=== PATIENT | male | born 1960 | race Caucasian/White ===

== ENCOUNTER 2017-06-27 15:30 | Emergency (ER) | payer MEDICAID ==
[~2017-06-27] VITALS: Ht 175.3 cm; Wt 73.0 kg
[2017-06-27] MEDS ORDERED: KETOROLAC 30MG/ML VIAL IM ONE (18:45)
[2017-06-27 19:00] VITALS: BP 165/99
== END 2017-06-27 21:07 | disposition home or self-care (01) ==
LOC: ER 15:30
DX: S90.31XA Contusion of right foot, initial encounter (principal); Y92.89 Other specified places as the place of occurrence of the external cause; Y93.89 Activity, other specified; W22.09XA Striking against other stationary object, initial encounter; F12.90 Cannabis use, unspecified, uncomplicated; F17.210 Nicotine dependence, cigarettes, uncomplicated
CPT/HCPCS: 73630; 96372; 99284; J1885; Z7610

== ENCOUNTER 2017-08-25 10:40 | Emergency (ER) | payer MEDICAID ==
[~2017-08-25] VITALS: Ht 172.7 cm; Wt 72.0 kg
[2017-08-25 11:01] VITALS: BP 144/97
[2017-08-25 11:37] LABS: CLARITY URINE CLEAR (CLEAR); COLOR URINE YELLOW (YELLOW); GLUCOSE URINE NEGATIVE (NEGATIVE); KETONES URINE NEGATIVE (NEGATIVE); LEUKOCYTE ESTERASE URINE NEGATIVE (NEGATIVE); NITRITE URINE NEGATIVE (NEGATIVE); OCCULT BLOOD URINE NEGATIVE (NEGATIVE); PROTEIN URINE NEGATIVE (NEGATIVE); SPECIFIC GRAVITY URINE 1.022 (1.005-1.030)
[2017-08-25] MEDS: LORAZEPAM 1MG TABLET PO ONE (11:44)
[2017-08-25 11:55] LABS: *AMPHETAMINES SCREEN URINE PRESUMTIVE POSITIVE (NEGATIVE); *BARBITURATES SCREEN URINE NEGATIVE (NEGATIVE); *BENZODIAZEPINES SCREEN URINE NEGATIVE (NEGATIVE); *COCAINE SCREEN URINE NEGATIVE (NEGATIVE); CANNABINOID URINE SCREEN PRESUMTIVE POSITIVE (NEGATIVE); METHADONE URINE SCREEN NEGATIVE (NEGATIVE); OPIATES URINE SCREEN NEGATIVE (NEGATIVE); PHENCYCLIDINE URINE SCREEN NEGATIVE (NEGATIVE)
== END 2017-08-25 12:17 | disposition home or self-care (01) ==
LOC: ER 10:53
DX: F15.10 Other stimulant abuse, uncomplicated (principal); F41.9 Anxiety disorder, unspecified; F20.9 Schizophrenia, unspecified; F32.9 Major depressive disorder, single episode, unspecified; F12.10 Cannabis abuse, uncomplicated; F17.200 Nicotine dependence, unspecified, uncomplicated
CPT/HCPCS: 80305; 81003; 99284

== ENCOUNTER 2017-08-26 13:42 | Emergency (ER) | payer MEDICAID ==
[~2017-08-26] VITALS: Ht 175.3 cm; Wt 73.0 kg
[2017-08-26 15:54] VITALS: BP 142/89
[2017-08-26] MEDS ORDERED: LORAZEPAM 0.5MG TABLET PO ONE (17:30)
== END 2017-08-26 18:07 | disposition left against medical advice (07) ==
LOC: ER 14:24
DX: F41.9 Anxiety disorder, unspecified (principal); F20.9 Schizophrenia, unspecified; F32.9 Major depressive disorder, single episode, unspecified; M19.90 Unspecified osteoarthritis, unspecified site; F17.200 Nicotine dependence, unspecified, uncomplicated; F12.10 Cannabis abuse, uncomplicated; F15.10 Other stimulant abuse, uncomplicated
CPT/HCPCS: 99284

== ENCOUNTER 2022-03-26 09:52 | Emergency (ER) | payer MEDICAID ==
[~2022-03-26] VITALS: Ht 172.7 cm; Wt 73.0 kg
[2022-03-26] MEDS ORDERED: KETOROLAC 60MG/2ML VIAL IM STA (10:42)
[2022-03-26] MEDS ORDERED: LORAZEPAM 0.5MG TABLET PO ONE (10:45)
[2022-03-26] MEDS ORDERED: METH-653 MT (12:31)
[2022-03-26] MEDS ORDERED: IBUP-2029 MT (12:31)
[2022-03-26 13:20] VITALS: BP 145/96
[2022-03-26] MEDS ORDERED: KETOROLAC 60MG/2ML VIAL IM NR (14:05)
== END 2022-03-26 15:41 | disposition home or self-care (01) ==
LOC: ER 09:52
DX: R07.89 Other chest pain (principal); M54.89 Other dorsalgia; J44.9 Chronic obstructive pulmonary disease, unspecified; F41.9 Anxiety disorder, unspecified; M19.90 Unspecified osteoarthritis, unspecified site; F32.A Depression, unspecified; F20.9 Schizophrenia, unspecified; F17.210 Nicotine dependence, cigarettes, uncomplicated; F15.10 Other stimulant abuse, uncomplicated; F12.10 Cannabis abuse, uncomplicated; Z87.828 Personal history of other (healed) physical injury and trauma
CPT/HCPCS: 71045; 93005; 96372; 99283; J1885

== ENCOUNTER 2022-06-02 12:12 | Emergency (ER) | payer MEDICAID, OTHER ==
[~2022-06-02] VITALS: Ht 167.6 cm; Wt 75.0 kg
[~2022-06-02 12:12] MED LIST: IBUP-2029 MT; METH-653 MT
[2022-06-02 12:28] VITALS: BP 162/97
[2022-06-02] MEDS ORDERED: CLIN-194 MT (14:27)
[2022-06-02] MEDS ORDERED: MUPI22OI2 TP (14:27)
== END 2022-06-02 14:55 | disposition home or self-care (01) ==
LOC: ER 12:12
DX: L02.31 Cutaneous abscess of buttock (principal); F15.10 Other stimulant abuse, uncomplicated; F12.10 Cannabis abuse, uncomplicated; Z86.59 Personal history of other mental and behavioral disorders
CPT/HCPCS: 99283

== ENCOUNTER 2023-03-02 18:19 | Emergency (ER) | payer MEDICARE, OTHER ==
[~2023-03-02] VITALS: Ht 175.3 cm; Wt 59.0 kg
[~2023-03-02 18:19] MED LIST changes: +CLIN-194 MT; +MUPI22OI2 TP
[2023-03-02 19:02] LABS: BASOPHILS % 0.3 % (0.0-2.0); EOSINOPHILS % 2.1 % (0.0-5.0); HEMATOCRIT. 33.7 % (42.0-52.0); LYMPHOCYTES % 15.8 % (20.0-50.0); MEAN CORPUSCULAR HEMOGLOBIN 28.8 pg (28.0-32.0); MEAN CORPUSCULAR VOLUME 87.9 fL (80.0-94.0); MEAN PLATELET VOLUME 6.8 fl (7.4-10.4); MONOCYTES % 8.7 % (2.0-8.0); NEUTROPHILS % 73.1 % (40.0-76.0); PLATELET 364 x1000/uL (130-400); RED BLOOD CELL COUNT 3.84 mill/uL (4.7-6.1); RED CELL DISTRIBUTION WIDTH 16.1 % (11.6-14.6)
[2023-03-02 19:12] LABS: CHLORIDE 96 mEq/L (98-107)
[2023-03-02 19:27] LABS: ETHANOL BLOOD < 10 mg/dL
[2023-03-02 20:47] LABS: *AMPHETAMINES SCREEN URINE PRESUMTIVE POSITIVE (NEGATIVE); *BARBITURATES SCREEN URINE NEGATIVE (NEGATIVE); *BENZODIAZEPINES SCREEN URINE PRESUMTIVE POSITIVE (NEGATIVE); *COCAINE SCREEN URINE NEGATIVE (NEGATIVE); CANNABINOID URINE SCREEN PRESUMTIVE POSITIVE (NEGATIVE); METHADONE URINE SCREEN PRESUMTIVE POSITIVE (NEGATIVE); OPIATES URINE SCREEN PRESUMTIVE POSITIVE (NEGATIVE); PHENCYCLIDINE URINE SCREEN NEGATIVE (NEGATIVE)
[2023-03-02 21:12] VITALS: BP 144/91
== END 2023-03-02 21:15 | disposition home or self-care (01) ==
LOC: ER 18:19
DX: R07.89 Other chest pain (principal); F41.9 Anxiety disorder, unspecified; M19.90 Unspecified osteoarthritis, unspecified site; F32.A Depression, unspecified; F20.9 Schizophrenia, unspecified; Z79.899 Other long term (current) drug therapy
CPT/HCPCS: 36415; 71045; 80053; 80305; 80320; 83880; 84484; 85025; 93005; 99285; G0480

== ENCOUNTER 2023-04-01 11:22 | Inpatient (IN) | payer MEDICARE, MEDICAID ==
[~2023-04-01] VITALS: Ht 175.3 cm; Wt 54.9 kg
[2023-04-01] MEDS ORDERED: IOHEXOL-350 100 ML BOTTLE ONE (12:11)
[2023-04-01 12:33] LABS: BASOPHILS % 0.2 % (0.0-2.0); EOSINOPHILS % 0.2 % (0.0-5.0); HEMATOCRIT. 28.5 % (42.0-52.0); HEMOGLOBIN. 9.4 g/dL (14.0-18.0); LYMPHOCYTES % 9.7 % (20.0-50.0); MEAN CORPUSCULAR HEMOGLOBIN 28.8 pg (28.0-32.0); MEAN CORPUSCULAR VOLUME 87.1 fL (80.0-94.0); MEAN PLATELET VOLUME 7.4 fl (7.4-10.4); MONOCYTES % 7.6 % (2.0-8.0); NEUTROPHILS % 82.3 % (40.0-76.0); PLATELET 298 x1000/uL (130-400); RED BLOOD CELL COUNT 3.28 mill/uL (4.7-6.1); RED CELL DISTRIBUTION WIDTH 17.5 % (11.6-14.6)
[2023-04-01 12:40] LABS: CHLORIDE 97 mEq/L (98-107)
[2023-04-01 12:48] LABS: BG BASE EXCESS 3.7 mmol/L (-2.0-2.0); BG CARBOXYHEMOGLOBIN 0.9 % (0.5-1.5); BG DEOXYHEMOGLOBIN 8.1 % (0.0-5.0); BG HCO3 ACT 27.7 mmol/L (22.0-26.0); BG METHEMOGLOBIN 0.2 % (0.0-1.5); BG OXYGEN SATURATION 91.8 % (92.0-98.5); BG OXYHEMOGLOBIN 90.8 % (94.0-97.0); BG PCO2 39.6 mmHg (35.0-45.0); BG PH 7.463 (7.350-7.450); BG PO2 59.7 mmHg (75.0-100.0); BG SAMPLE SITE RIGHT RADIAL; BG TOTAL HEMOGLOBIN 10.3 g/dL (12.0-18.0); BG VENT MODE ROOM AIR
[2023-04-01 12:51] LABS: ETHANOL BLOOD < 10 mg/dL (-10)
[2023-04-01 13:16] LABS: INR 1.3; PROTHROMBIN TIME 13.8 sec (9.6-11.0)
[2023-04-01 14:45] VITALS: BP 135/87; PULSE 105; RESP 19; TEMP 97.3
[2023-04-01] MEDS ORDERED: METH-818 PO (15:08)
[2023-04-01] MEDS ORDERED: APIX5TAB MT (15:09)
[2023-04-01 16:00] VITALS: BP 118/69; PULSE 99; RESP 18; TEMP 98.6
[2023-04-01] MEDS ORDERED: ACETAMINOPHEN 325MG TABLET PO PRN (16:30)
[2023-04-01] MEDS ORDERED: ONDANSETRON HCL 4MG/2ML INJ IV PRN (16:30)
[2023-04-01] MEDS ORDERED: MORPHINE SULFATE 2 MG/ML CPJ (NOT FOR IM USE) IV PRN (16:30)
[2023-04-01] MEDS: DEXT 5%/0.45% NACL 1000ML 1,000 ML IV SCH (16:45)
[2023-04-01] MEDS ORDERED: MULT-625 MT (17:07)
[2023-04-01] MEDS ORDERED: PARO-41 MT (17:11)
[2023-04-01] MEDS ORDERED: ONDA4TAB50 MT (17:11)
[2023-04-01] MEDS ORDERED: HYDR2TAB7 MT (17:11)
[2023-04-01] MEDS ORDERED: SENN1TAB35 MT (17:11)
[2023-04-01] MEDS ORDERED: GABA-290 MT (17:11)
[2023-04-01] MEDS ORDERED: RISP2TAB85 MT (17:11)
[2023-04-01] MEDS: LORAZEPAM 2MG/ML CPJ IV PRN (18:49)
[2023-04-01 18:51] LABS: HEPATITIS B SURFACE ANTIGEN NEGATIVE
[2023-04-01 19:28] LABS: *AMPHETAMINES SCREEN URINE PRESUMTIVE POSITIVE (NEGATIVE); *BARBITURATES SCREEN URINE NEGATIVE (NEGATIVE); *BENZODIAZEPINES SCREEN URINE NEGATIVE (NEGATIVE); *COCAINE SCREEN URINE NEGATIVE (NEGATIVE); CANNABINOID URINE SCREEN PRESUMTIVE POSITIVE (NEGATIVE); METHADONE URINE SCREEN PRESUMTIVE POSITIVE (NEGATIVE); OPIATES URINE SCREEN PRESUMTIVE POSITIVE (NEGATIVE); PHENCYCLIDINE URINE SCREEN NEGATIVE (NEGATIVE)
[2023-04-01] MEDS ORDERED: LORAZEPAM 2MG/ML CPJ IV NR (19:30)
[2023-04-01] MEDS: ASPIRIN 81MG TABLET PO SCH (19:30)
[2023-04-01 19:49] LABS: CLARITY URINE CLEAR (CLEAR); COLOR URINE YELLOW (YELLOW); PROTEIN URINE 1+ (NEGATIVE)
[2023-04-01 19:51] LABS: KETONES URINE 2+ (NEGATIVE); LEUKOCYTE ESTERASE URINE NEGATIVE (NEGATIVE); NITRITE URINE NEGATIVE (NEGATIVE); OCCULT BLOOD URINE NEGATIVE (NEGATIVE)
[2023-04-01 19:55] LABS: SPECIFIC GRAVITY URINE 1.072 (1.005-1.030)
[2023-04-01 20:00] VITALS: BP 139/70; PULSE 95; RESP 20; TEMP 98.1
[2023-04-01] MEDS ORDERED: NALOXONE HCL 0.4 MG/ML 1ML VIAL IV PRN (20:00)
[2023-04-01] MEDS ORDERED: HYDROMORPHONE HCL/PF 2MG/ML CPJ IV NR (20:00)
[2023-04-01] MEDS ORDERED: ATORVASTATIN CALCIUM 40MG TABLET PO SCH (21:00)
[2023-04-01] MEDS: ATORVASTATIN CALCIUM 40MG TABLET PO SCH (21:45)
[2023-04-02] VITALS (7 sets, daily range): BP systolic 102–130; BP diastolic 56–85; PULSE 90–114; RESP 18–20; TEMP 97.9–99.1
[2023-04-02] MEDS: LORAZEPAM 2MG/ML CPJ IV PRN ×2 (01:03→07:11)
[2023-04-02] MEDS: DEXT 5%/0.45% NACL 1000ML 1,000 ML IV SCH ×2 (08:44→19:10)
[2023-04-02] MEDS: ASPIRIN 81MG TABLET PO SCH (09:00)
[2023-04-02] MEDS: METHADONE HCL 10MG TABLET PO SCH (09:00)
[2023-04-02] MEDS ORDERED: LORAZEPAM 2MG/ML CPJ IV PRN (10:30)
[2023-04-02] MEDS ORDERED: GADOTERATE MEGLUMINE 5 MMOL/10 ML VIAL IV ONE (10:51)
[2023-04-02] MEDS: HALOPERIDOL LACTATE 5MG/ML VIAL IM PRN (15:38)
[2023-04-02] MEDS ORDERED: DIPHENHYDRAMINE 50MG/ML VIAL IV ONE ×2 (16:30→16:45)
[2023-04-02] MEDS ORDERED: IPRATROPIUM/ALBUTEROL 0.5-3(2.5)MG/3ML NEB HHN PRN (16:45)
[2023-04-02] MEDS: DIPHENHYDRAMINE 50MG/ML VIAL IV PRN (17:23)
[2023-04-02] MEDS: ATORVASTATIN CALCIUM 40MG TABLET PO SCH (21:24)
[2023-04-02] MEDS: ENOXAPARIN 60MG/0.6ML SYR SUBCUT SCH (21:25)
[2023-04-02 22:02] LABS: BASOPHILS % 0.2 % (0.0-2.0); EOSINOPHILS % 0.1 % (0.0-5.0); HEMATOCRIT. 29.8 % (42.0-52.0); HEMOGLOBIN. 9.9 g/dL (14.0-18.0); LYMPHOCYTES % 12.3 % (20.0-50.0); MEAN CORPUSCULAR HEMOGLOBIN 28.7 pg (28.0-32.0); MEAN CORPUSCULAR VOLUME 86.3 fL (80.0-94.0); MEAN PLATELET VOLUME 7.6 fl (7.4-10.4); MONOCYTES % 7.8 % (2.0-8.0); NEUTROPHILS % 79.6 % (40.0-76.0); PLATELET 303 x1000/uL (130-400); RED BLOOD CELL COUNT 3.45 mill/uL (4.7-6.1); RED CELL DISTRIBUTION WIDTH 17.9 % (11.6-14.6)
[2023-04-02 22:23] LABS: CHLORIDE 102 mEq/L (98-107)
[2023-04-03] VITALS: BP 117/87; PULSE 115; RESP 18; TEMP 98.4
[2023-04-03] MEDS: LORAZEPAM 2MG/ML CPJ IV PRN ×4 (00:30→23:00)
[2023-04-03 04:00] VITALS: BP 125/81; PULSE 117; RESP 18; TEMP 98.2
[2023-04-03 08:00] VITALS: BP 120/86; PULSE 117; RESP 18; TEMP 97.8
[2023-04-03] MEDS: ENOXAPARIN 60MG/0.6ML SYR SUBCUT SCH ×3 (08:00→21:07)
[2023-04-03 08:22] LABS: BASOPHILS % 0.3 % (0.0-2.0); EOSINOPHILS % 0.2 % (0.0-5.0); HEMATOCRIT. 31.7 % (42.0-52.0); HEMOGLOBIN. 10.5 g/dL (14.0-18.0); LYMPHOCYTES % 13.4 % (20.0-50.0); MEAN CORPUSCULAR HEMOGLOBIN 28.7 pg (28.0-32.0); MEAN CORPUSCULAR VOLUME 86.8 fL (80.0-94.0); MEAN PLATELET VOLUME 8.3 fl (7.4-10.4); MONOCYTES % 9.9 % (2.0-8.0); NEUTROPHILS % 76.2 % (40.0-76.0); PLATELET 283 x1000/uL (130-400); RED BLOOD CELL COUNT 3.66 mill/uL (4.7-6.1); RED CELL DISTRIBUTION WIDTH 17.8 % (11.6-14.6)
[2023-04-03] MEDS: METHADONE HCL 10MG TABLET PO SCH (08:45)
[2023-04-03] MEDS: DEXT 5%/0.45% NACL 1000ML 1,000 ML IV SCH ×2 (08:48→21:08)
[2023-04-03 09:04] LABS: CHLORIDE 102 mEq/L (98-107)
[2023-04-03 11:55] VITALS: BP 131/72; PULSE 16; RESP 18; TEMP 96.7
[2023-04-03] MEDS: HALOPERIDOL LACTATE 5MG/ML VIAL IM PRN ×2 (13:24→22:07)
[2023-04-03 16:22] VITALS: BP 120/86; PULSE 107; RESP 18; TEMP 97.8
[2023-04-03 20:00] VITALS: BP 114/84; PULSE 100; RESP 20; TEMP 97.8
[2023-04-03] MEDS: ATORVASTATIN CALCIUM 40MG TABLET PO SCH (21:07)
[2023-04-04] VITALS: BP 119/76; PULSE 98; RESP 19; TEMP 98.2
[2023-04-04 04:00] VITALS: PULSE 100; RESP 19; TEMP 97.5
[2023-04-04] MEDS: LORAZEPAM 2MG/ML CPJ IV PRN (05:12)
[2023-04-04 08:00] VITALS: BP 148/55; PULSE 101; RESP 18; TEMP 97.6
[2023-04-04] MEDS: METHADONE HCL 10MG TABLET PO SCH (08:25)
[2023-04-04] MEDS: HALOPERIDOL LACTATE 5MG/ML VIAL IM PRN (08:38)
[2023-04-04] MEDS: ENOXAPARIN 60MG/0.6ML SYR SUBCUT SCH (08:55)
[2023-04-04] MEDS: DEXT 5%/0.45% NACL 1000ML 1,000 ML IV SCH (11:13)
[2023-04-04 12:00] VITALS: BP 104/79; PULSE 98; RESP 18; TEMP 96.8
[2023-04-04 16:00] VITALS: BP 100/70; PULSE 98; RESP 18; TEMP 97
[2023-04-04 20:00] VITALS: BP 116/81; PULSE 105; RESP 18; TEMP 100.2
[2023-04-04] MEDS: ATORVASTATIN CALCIUM 40MG TABLET PO SCH (21:00)
[2023-04-05] VITALS: BP 108/72; PULSE 98; RESP 18; TEMP 98.1
[2023-04-05] MEDS: ENOXAPARIN 60MG/0.6ML SYR SUBCUT SCH ×2 (02:10→08:16)
[2023-04-05] MEDS: DEXT 5%/0.45% NACL 1000ML 1,000 ML IV SCH ×2 (02:10→14:07)
[2023-04-05 04:00] VITALS: BP 117/80; PULSE 64; RESP 18; TEMP 98.8
[2023-04-05 08:07] VITALS: BP 112/74; PULSE 94; RESP 20; TEMP 98.3
[2023-04-05] MEDS: METHADONE HCL 10MG TABLET PO SCH ×2 (08:47→09:00)
[2023-04-05] MEDS: HALOPERIDOL LACTATE 5MG/ML VIAL IM PRN (09:01)
[2023-04-05 12:00] VITALS: BP 110/69; PULSE 70; RESP 18; TEMP 98.3
[2023-04-05] MEDS: LORAZEPAM 2MG/ML CPJ IV PRN (13:01)
[2023-04-05 16:00] VITALS: BP 118/73; PULSE 99; RESP 18; TEMP 98.2
[2023-04-05 20:38] VITALS: BP 120/80; PULSE 102; RESP 20; TEMP 100.9
[2023-04-05] MEDS: ATORVASTATIN CALCIUM 40MG TABLET PO SCH (21:00)
[2023-04-06] VITALS: BP 131/78; PULSE 74; RESP 18; TEMP 97.9
[2023-04-06] MEDS: ENOXAPARIN 60MG/0.6ML SYR SUBCUT SCH ×3 (01:44→20:54)
[2023-04-06 04:00] VITALS: BP 124/71; PULSE 101; RESP 18; TEMP 98.2
[2023-04-06] MEDS: DEXT 5%/0.45% NACL 1000ML 1,000 ML IV SCH ×3 (04:02→22:38)
[2023-04-06 06:21] LABS: INR 1.8; PROTHROMBIN TIME 18.2 sec (9.6-11.0)
[2023-04-06 06:35] LABS: BASOPHILS % 0.5 % (0.0-2.0); HEMATOCRIT. 31.6 % (42.0-52.0); HEMOGLOBIN. 10.5 g/dL (14.0-18.0); LYMPHOCYTES % 15.5 % (20.0-50.0); MEAN CORPUSCULAR HEMOGLOBIN 28.8 pg (28.0-32.0); MEAN CORPUSCULAR VOLUME 86.8 fL (80.0-94.0); MEAN PLATELET VOLUME 8.2 fl (7.4-10.4); MONOCYTES % 9.1 % (2.0-8.0); NEUTROPHILS % 73.9 % (40.0-76.0); PLATELET 295 x1000/uL (130-400); RED BLOOD CELL COUNT 3.64 mill/uL (4.7-6.1); RED CELL DISTRIBUTION WIDTH 17.9 % (11.6-14.6)
[2023-04-06 06:42] LABS: CHLORIDE 103 mEq/L (98-107)
[2023-04-06 08:05] VITALS: BP 134/85; PULSE 100; RESP 20; TEMP 98.2
[2023-04-06] MEDS: METHADONE HCL 10MG TABLET PO SCH (09:00)
[2023-04-06] MEDS: LORAZEPAM 2MG/ML CPJ IV PRN (09:55)
[2023-04-06 11:50] VITALS: BP 119/78; PULSE 102; RESP 18; TEMP 98.5
[2023-04-06 16:18] VITALS: BP 134/96; PULSE 99; RESP 18; TEMP 98.3
[2023-04-06 20:00] VITALS: BP 128/92; PULSE 97; RESP 20; TEMP 98.3
[2023-04-06] MEDS ORDERED: LORAZEPAM 2MG/ML CPJ IV PRN (20:30)
[2023-04-06] MEDS: ATORVASTATIN CALCIUM 40MG TABLET PO SCH (20:50)
[2023-04-07] VITALS: BP 110/77; PULSE 101; RESP 18; TEMP 98.1
[2023-04-07 04:00] VITALS: BP 118/83; PULSE 100; RESP 18; TEMP 98
[2023-04-07 05:39] LABS: CHLORIDE 104 mEq/L (98-107)
[2023-04-07 05:42] LABS: INR 1.9; PROTHROMBIN TIME 20.1 sec (9.6-11.0)
[2023-04-07 05:43] LABS: BASOPHILS % 0.4 % (0.0-2.0); EOSINOPHILS % 1.3 % (0.0-5.0); HEMATOCRIT. 30.9 % (42.0-52.0); HEMOGLOBIN. 10.5 g/dL (14.0-18.0); LYMPHOCYTES % 21.4 % (20.0-50.0); MEAN CORPUSCULAR HEMOGLOBIN 28.8 pg (28.0-32.0); MEAN CORPUSCULAR VOLUME 84.4 fL (80.0-94.0); MEAN PLATELET VOLUME 8.4 fl (7.4-10.4); MONOCYTES % 12.9 % (2.0-8.0); PLATELET 294 x1000/uL (130-400); RED BLOOD CELL COUNT 3.66 mill/uL (4.7-6.1); RED CELL DISTRIBUTION WIDTH 17.7 % (11.6-14.6)
[2023-04-07 06:13] LABS: FERRITIN 194 ng/mL (22-322)
[2023-04-07 06:58] LABS: FOLIC ACID (FOLATE) SERUM >20 ng/mL ng/mL (>5.38); VITAMIN B12 SERUM 1107 pg/mL (211-911)
[2023-04-07 07:36] LABS: TOTAL IRON BINDING CAPACITY 173 ug/dL (250-450)
[2023-04-07 08:00] VITALS: BP 127/84; PULSE 92; RESP 17; TEMP 97.9
[2023-04-07] MEDS: ENOXAPARIN 60MG/0.6ML SYR SUBCUT SCH ×2 (08:37→20:42)
[2023-04-07 12:00] VITALS: BP 140/91; PULSE 95; RESP 17; TEMP 97.6
[2023-04-07] MEDS ORDERED: POTASSIUM CHLORIDE 20MEQ TABLET SR PO NR (12:30)
[2023-04-07] MEDS: LORAZEPAM 2MG/ML CPJ IV PRN (14:55)
[2023-04-07 16:00] VITALS: BP 150/90; PULSE 101; RESP 17; TEMP 97.8
[2023-04-07 20:00] VITALS: BP 138/89; PULSE 104; RESP 20; TEMP 97.2
[2023-04-07] MEDS: DEXT 5%/0.45% NACL 1000ML 1,000 ML IV SCH (20:42)
[2023-04-07] MEDS: ATORVASTATIN CALCIUM 40MG TABLET PO SCH (21:00)
[2023-04-08] VITALS: BP 139/95; PULSE 102; RESP 19; TEMP 97.8
[2023-04-08 04:00] VITALS: BP 148/95; PULSE 102; RESP 22; TEMP 97.5
[2023-04-08 08:00] VITALS: BP 143/91; PULSE 76; RESP 20; TEMP 97.4
[2023-04-08] MEDS: ENOXAPARIN 60MG/0.6ML SYR SUBCUT SCH ×2 (08:08→20:49)
[2023-04-08] MEDS: DEXT 5%/0.45% NACL 1000ML 1,000 ML IV SCH ×2 (08:08→20:49)
[2023-04-08] MEDS: PAROXETINE HCL 10MG TABLET PO SCH (09:36)
[2023-04-08] MEDS: RISPERIDONE 0.5MG TABLET PO SCH ×2 (09:36→17:41)
[2023-04-08 12:00] VITALS: BP 135/87; PULSE 75; RESP 20; TEMP 97.7
[2023-04-08 16:00] VITALS: BP 128/76; PULSE 104; RESP 20; TEMP 97.8
[2023-04-08] MEDS: LORAZEPAM 2MG/ML CPJ IV PRN (18:02)
[2023-04-08 20:00] VITALS: BP 111/78; PULSE 106; RESP 20; TEMP 98.2
[2023-04-08] MEDS: DIPHENHYDRAMINE 50MG/ML VIAL IV PRN (20:49)
[2023-04-08] MEDS: ATORVASTATIN CALCIUM 40MG TABLET PO SCH (20:49)
[2023-04-09] VITALS (7 sets, daily range): BP systolic 114–141; BP diastolic 79–90; PULSE 94–111; RESP 18–20; TEMP 97.2–98.6; O2SAT 100
[2023-04-09] MEDS: LORAZEPAM 2MG/ML CPJ IV PRN ×2 (09:22→21:24)
[2023-04-09] MEDS: PAROXETINE HCL 10MG TABLET PO SCH (09:22)
[2023-04-09] MEDS: DIPHENHYDRAMINE 50MG/ML VIAL IV PRN ×2 (09:22→21:25)
[2023-04-09] MEDS: ENOXAPARIN 60MG/0.6ML SYR SUBCUT SCH ×2 (09:22→21:24)
[2023-04-09] MEDS: RISPERIDONE 0.5MG TABLET PO SCH ×2 (09:22→18:35)
[2023-04-09] MEDS: DEXT 5%/0.45% NACL 1000ML 1,000 ML IV SCH (13:16)
[2023-04-09] MEDS ORDERED: PARO-41 MT (15:30)
[2023-04-09] MEDS ORDERED: RISP05 MT (15:30)
[2023-04-09] MEDS: ATORVASTATIN CALCIUM 40MG TABLET PO SCH (21:25)
[2023-04-09] MEDS: HALOPERIDOL LACTATE 5MG/ML VIAL IM PRN (21:25)
[2023-04-10] VITALS: BP 140/66; PULSE 90; RESP 20; TEMP 98
[2023-04-10] MEDS: DEXT 5%/0.45% NACL 1000ML 1,000 ML IV SCH (00:30)
[2023-04-10 06:00] VITALS: BP 119/78; PULSE 100; RESP 20; TEMP 97.6
[2023-04-10 08:00] VITALS: BP 128/83; PULSE 109; RESP 19; TEMP 99.1
[2023-04-10] MEDS: RISPERIDONE 0.5MG TABLET PO SCH (09:05)
[2023-04-10] MEDS: PAROXETINE HCL 10MG TABLET PO SCH (09:05)
[2023-04-10] MEDS: ENOXAPARIN 60MG/0.6ML SYR SUBCUT SCH (09:06)
[2023-04-10 12:00] VITALS: BP 140/96; PULSE 117; RESP 18; TEMP 99.5
[2023-04-10 16:00] VITALS: BP 138/80; PULSE 108; RESP 19; TEMP 98.1
== END 2023-04-10 17:00 | disposition home health service (06) | DRG 52 ==
LOC: ER 11:22 → 7WST 13:34 → EDBEDREQ 13:35 → EDBEDREQTM 13:35 → 7WST 14:53 → 6EST 04-09 13:54
PROVIDERS: ADMIT Internal Medicine; ATTEND Internal Medicine
DX: G92.8 Other toxic encephalopathy (principal); D68.59 Other primary thrombophilia; E44.0 Moderate protein-calorie malnutrition; E87.1 Hypo-osmolality and hyponatremia; I50.9 Heart failure, unspecified; E11.9 Type 2 diabetes mellitus without complications; D64.9 Anemia, unspecified; F11.20 Opioid dependence, uncomplicated; F10.20 Alcohol dependence, uncomplicated; G89.4 Chronic pain syndrome; M41.9 Scoliosis, unspecified; F20.9 Schizophrenia, unspecified; F15.90 Other stimulant use, unspecified, uncomplicated; Z86.711 Personal history of pulmonary embolism; J44.9 Chronic obstructive pulmonary disease, unspecified; F32.9 Major depressive disorder, single episode, unspecified; M19.90 Unspecified osteoarthritis, unspecified site; F17.210 Nicotine dependence, cigarettes, uncomplicated; R74.01 Elevation of levels of liver transaminase levels; F19.10 Other psychoactive substance abuse, uncomplicated; R13.12 Dysphagia, oropharyngeal phase; K14.8 Other diseases of tongue; R04.0 Epistaxis; Z85.118 Personal history of other malignant neoplasm of bronchus and lung; Z68.1 Body mass index [BMI] 19.9 or less, adult; Z78.1 Physical restraint status; Z85.46 Personal history of malignant neoplasm of prostate
CPT/HCPCS: 36415; 36600; 70496; 70498; 70553; 71045; 71250; 72156; 74230; 76700; 80048; 80053; 80061; 80076; 80305; 80320; 81003; 82140; 82248; 82375; 82607; 82728; 82746; 82805; 82977; 83036; 83540; 83550; 84443; 85025; 85044; 85379; 86803; 87340; 92610; 92611; 93005; 97116; 97162; 97164; 97166; 99291; A9577; J1170; J1200; J1630; J1650; J2060; J2270; Q9967; G0480